=== PATIENT | female | born 1990 | race Caucasian/White ===

== ENCOUNTER 2022-10-25 14:06 | Emergency (ER) | payer OTHER, SELFPAY ==
[2022-10-25 14:21] VITALS: BP 134/86; PULSE 106; RESP 18; TEMP 36.7; O2SAT 98
--- NOTE | 2022-10-25 15:06 | ECG_ITS ---
Measurements Intervals [place] Rate: 83 P: 49 SC: 161 QRS: 61 QRSD: 102 T: 45 QT: 361 QTc: 426 Interpretive Statements SINUS RHYTHM NORMAL ECG NO PREVIOUS ECG AVAILABLE FOR COMPARISON Electronically Signed On 10-26-2022 13:39:54 CDT by Gerson Mtz M.D.
[2022-10-25 15:28] LABS: Basophils Absolute Auto 0.1 K/mm3 (0.0-0.1); Basophils Percent Auto 0.5 % (0.2-1.2); Eosinophils Absolute Auto 0.1 K/mm3 (0-0.3); Eosinophils Percent Auto 0.6 % (0-4.4); Hematocrit 40.2 % (37.0-47.0); Hemoglobin 13.5 g/dL (12.0-15.0); Immature Granulocyte Absolute 0.03 K/mm3 (0.00-0.031); Immature Granulocyte Percent A 0.3 % (0-0.5); Lymphocytes Absolute Auto 2.12 K/mm3 (0.9-3.2); Lymphocytes Percent Auto 20.4 % (18.3-44.2); Mean Corpuscular HGB Conc 33.6 g/dl (32-36); Mean Corpuscular Hemoglobin 29.9 pg (26-34); Mean Corpuscular Volume 89.1 fl (80-100); Mean Platelet Volume 9.5 fl (7.4-10.4); Monocytes Absolute Auto 0.5 K/mm3 (0.1-0.6); Monocytes Percent Auto 5.1 % (2.6-8.5); Neutrophils Absolute Auto 7.6 K/mm3 (1.3-6.7); Neutrophils Percent Auto 73.1 % (45.5-73.1); Platelet Count Result 269 k/mm3 (150-375); Red Blood Count 4.51 M/mm3 (4.2-5.4); Red Cell Distribution Width 14.8 % (11.5-14.5); White Blood Count 10.4 K/mm3 (4.5-10.0)
[2022-10-25 15:57] LABS: Appearance Urine Cloudy (Clear); Bacteria Urine 1+ /hpf; Bilirubin Urine Negative (Negative); Blood Urine Negative (Negative); Color Urine Yellow (Yellow); Glucose Urine UA Negative (Negative); Ketones Urine Negative (Negative); Leukocyte Esterase Ur 3+ LEU/UL (Negative); Need Manual Microscopic Reviewed; Nitrate Urine Negative (Negative); Non Pathogenic Casts 0-2; Protein Urine Trace mg/dL (Negative); Specific Grav Ur 1.018 (1.001-1.035); Squamous Epithelial Cell Urine Many /hpf (Few); WBC Urine 21-50 /hpf; pH Urine 7.5 (5.0-9.0)
[2022-10-25 16:02] LABS: Add Urine Microscopic? YES
[2022-10-25 16:05] LABS: Influenza A QL RT-PCR Negative (Negative); Influenza B QL RT-PCR Negative (Negative); SARS-CoV-2 RNA PCR Negative
--- NOTE | 2022-10-25 16:17 | ED.PSYCH ---
HPI - Psych General Chief Complaint: Psychiatric Symptoms <Tara Carrion PA-C - Last Filed: 10/26/22 19:09> Stated Complaint: Depressed <KHURRAM Zhong Last Filed: 10/26/22 19:09> Time Seen by Provider: 10/25/22 14:42 <KHURRAM Zhong Last Filed: 10/26/22 19:09> Source: patient <KHURRAM Zhong Last Filed: 10/26/22 19:09> Mode of arrival: ambulatory <KHURRAM Zhong Last Filed: 10/26/22 19:09> Limitations: no limitations <KHURRAM Zhong Last Filed: 10/26/22 19:09> History of Present Illness HPI Narrative: Patient is a 32 y/o female, with past medical history of depression and anxiety, who presents to the ED with report of depression with suicidal ideation. Patient reports feeling increasingly depressed recently after breaking up with her boyfriend. She feels like she does not know what to do with her life, does not know what is wrong with her, and just wants her life to end. States she does not have a purpose and would be better off . She states she has thought about taking pills or drugs to end her life. She sees a psychiatrist, Dr. Antonio, and recently re-started her Fluoxetine, Seroquel, and anxiety medication. She previously had not been taking these. She does mention she took 2 extra Seroquel today, trying to numb herself, 1 was taken in the ED waiting room and just prior to arrival. Patient has previous suicidal attempt several years ago after her mother in which she cut her wrists. Denies any homicidal ideation, [facility]. <KHURRAM Zhong Last Filed: 10/26/22 19:09> Related Data Home Medications: Home Medications Medication Instructions Recorded Confirmed fluoxetine 20 mg capsule mg 10/25/22 10/25/22 hydroxyzine pamoate 25 mg capsule mg 10/25/22 multivitamin with folic acid 400 tablet PO 10/25/22 mcg tablet (Daily-Raymond (with folic acid)) quetiapine 300 mg tablet mg 10/25/22 <Tara Carrion PA-C - Last Filed: 10/26/22 19:09> Allergies/Adverse Reactions: Allergies Allergy/AdvReac Type Severity Reaction Status Date / Time haloperidol [From Haldol] Allergy Unknown Verified 10/25/22 17:44 <Tara Carrion PA-C - Last Filed: 10/26/22 19:09> Review of Systems Review of Systems: CONSTITUTIONAL: Denies fever, chills, or sweats. ENT: Denies rhinorrhea, congestion, sore throat. CARDIOVASCULAR: Denies chest pain, palpitations, or edema. RESPIRATORY: Denies cough or dyspnea. GASTROINTESTINAL: Denies abdominal pain, nausea, vomiting, or diarrhea. GENITOURINARY: Denies dysuria or hematuria. MUSCULOSKELETAL: Denies back pain, joint pain, or myalgia. NEUROLOGIC: Denies headache, numbness, or weakness. PSYCHIATRIC: See HPI. <Tara Carrion PA-C - Last Filed: 10/26/22 19:09> All systems reviewed & are unremarkable except as noted in HPI and below <Tara Carrion PA-C - Last Filed: 10/26/22 19:09> [facility] Past Medical History Medical History: Medical History (Updated 10/25/22 @ 16:30 by Tara Carrion PA-C) Anxiety Depression <Tara Carrion PA-C - Last Filed: 10/26/22 19:09> Surgical History Surgical History: Surgical History (Updated 10/25/22 @ 16:30 by Tara Carrion PA-C) No pertinent past surgical history <Tara Carrion PA-C - Last Filed: 10/26/22 19:09> Social History Social History: Social History (Updated 10/25/22 @ 16:30 by Tara Carrion PA-C) Smoking status: Never smoker Substance use type: marijuana <Tara Carrion PA-C - Last Filed: 10/26/22 19:09> Exam Narrative: GENERAL: Well appearing, morbidly obese, non-toxic, in no acute distress. HEAD: Normocephalic, atraumatic. NECK: Supple. No adenopathy, no masses. RESPIRATORY: Airway patent, respirations nonlabored. Clear to auscultation bilaterally, no rales, rhonchi, wheezing. CARDIOVASCULAR:
[2022-10-25 16:22] LABS: Alanine Aminotransferase 28 U/L (6-35); Albumin Level 3.9 g/dL (3.5-5.1); Alkaline Phosphatase 65 U/L (38-126); Anion Gap 6 mmol/L (8-16); Aspartate Amino Transferase 22 U/L (14-36); Bilirubin,Total 0.5 mg/dL (0.2-1.3); Blood Urea Nitrogen 12 mg/dL (7-17); Calcium 8.5 mg/dL (8.4-10.2); Carbon Dioxide 27 mmol/L (22-30); Chloride 106 mmol/L (98-107); Estimated CRCL calculation 136 ml/min; Estimated Glomerular Filt Rate > 60; Glucose 105 mg/dL (65-110); Potassium 3.8 mmol/L (3.4-5.0); Sodium 139 mmol/L (137-145)
[2022-10-25 16:26] LABS: Amphetamine Screen Urine Negative (Negative); Barbiturate Screen Urine Negative (Negative); Benzodiazepines Screen Urine Negative (Negative); Cannabinoid Screen Urine Positive (Negative); Cocaine Screen Urine Negative (Negative); Methadone Screen Urine Negative (Negative); Opiate Screen Urine Negative (Negative); Phencyclidine Screen Urine Negative (Negative)
[2022-10-25 16:41] LABS: Acetaminophen < 10 ug/mL (10-30); Ethanol < 10 mg/dL (<10); Salicylate < 1.0 mg/dL (2-20)
[2022-10-25] MEDS: CEPHALEXIN 500 MG CAPSULE PO (17:30)
--- NOTE | 2022-10-25 19:10 | PC.NURSE ---
REPORT TO [facility]. CARE TRANSFERRED
--- NOTE | 2022-10-25 19:46 | PC.NURSE ---
spoke to [facility] staff regarding possible placement, patient now speaking to staff as well
[2022-10-25 21:44] VITALS: BP 123/84; PULSE 73; RESP 16; TEMP 36.2; O2SAT 98
--- NOTE | 2022-10-25 21:45 | PC.NURSE ---
report called to [facility], accepted and room available, lakeisha farley
--- NOTE | 2022-10-25 22:11 | PC.NURSE ---
updated [facility], patient awaiting transfer
== END 2022-10-26 00:05 ==
PROVIDERS: Emergency Provider Physician Assistant; PCP Internal Medicine Pulmonary Disease
DX: F32.A Depression, unspecified (principal); R45.851 Suicidal ideations; N30.01 Acute cystitis with hematuria; Z20.822 Contact with and (suspected) exposure to COVID-19; F41.9 Anxiety disorder, unspecified; Z91.51 Personal history of suicidal behavior
CPT/HCPCS: 36415; 80053; 80307; 81001; 81025; 84443; 85025; 87086; 87088; 87147; 87636; 93005; 99283; A9270